=== PATIENT | male | born 1945 | race African-American/Black ===

== ENCOUNTER 2016-03-12 10:20 | Emergency (ER) | payer OTHER ==
[~2016-03-12] VITALS: Ht 190.5 cm; Wt 158.8 kg
[2016-03-12 10:20] VITALS: BP 199/120; PULSE 54; RESP 16; TEMP 98.2; O2SAT 98
[2016-03-12] MEDS ORDERED: LORazepam 2 MG/ML VIAL (FOR ER USE) IM ONE (10:45)
[2016-03-12] MEDS ORDERED: LORazepam 2 MG/ML VIAL (FOR ER USE) ONE (10:46)
[2016-03-12 11:10] VITALS: BP 190/118; PULSE 49; RESP 20; TEMP 98.2; O2SAT 96
[2016-03-12 11:18] LABS: BASOPHILS # (AUTO) 0.2 K/uL (0.0-0.2); BASOPHILS % (AUTO) 3.5 % (0.0-2.0); EOSINOPHILS % (AUTO) 0.4 % (0.0-4.0); HEMATOCRIT 48.6 % (36-54); HEMOGLOBIN 15.6 g/dL (14.0-18.0); LYMPHOCYTES # (AUTO) 1.3 K/uL (1.0-5.5); LYMPHOCYTES % (AUTO) 20.6 % (20.5-51.5); MEAN CORPUSCULAR HEMOGLOBIN 27 pg (27-31); MEAN CORPUSCULAR HGB CONC 32 % (32-36); MEAN CORPUSCULAR VOLUME 85 fL (79.0-98.0); MONOCYTES # (AUTO) 0.5 K/uL (0.0-1.0); MONOCYTES % (AUTO) 7.3 % (1.7-9.3); NEUTROPHILS # (AUTO) 4.2 K/uL (1.8-7.7); NEUTROPHILS % (AUTO) 68.2 % (40.0-70.0); PLATELET COUNT (AUTO) 191 K/uL (130-430); RED BLOOD CELL COUNT(AUTO) 5.74 MIL/uL (4.2-6.2); RED CELL DISTRIBUTION WIDTH 15.4 % (9.0-15.0); WHITE BLOOD COUNT (AUTO) 6.2 K/uL (4.8-10.8)
[2016-03-12 11:27] LABS: CALCIUM 8.9 mg/dL (8.4-11.0); CREATININE 1.23 mg/dL (0.55-1.30); POTASSIUM 3.9 mmol/L (3.5-5.1)
[2016-03-12 11:31] LABS: ALBUMIN 3.5 g/dL (3.4-4.8); TOTAL BILIRUBIN 1.2 mg/dL (0.0-1.0); TOTAL PROTEIN, SERUM 8.1 g/dL (6.4-8.3)
[2016-03-12 11:32] LABS: INR 1.2 (0.80-1.20); PROTHROMBIN TIME 12.6 SECS (9.5-12.5)
== END 2016-03-12 11:10 | disposition short-term general hospital (02) ==
LOC: SED 10:20
DX: I63.9 Cerebral infarction, unspecified (principal); R47.01 Aphasia; I11.0 Hypertensive heart disease with heart failure; I50.9 Heart failure, unspecified; E11.9 Type 2 diabetes mellitus without complications
CPT/HCPCS: 36415; 80053; 80061; 84484; 85025; 85610; 85730; 86886; 86900; 86901; 93005; 96374; 99291; J2060